=== PATIENT | male | born 1975 | race Caucasian/White ===

== ENCOUNTER 2023-02-16 21:00 | Emergency (ER) | payer BC, SELFPAY ==
[2023-02-16 21:01] VITALS: BP 167/90; PULSE 117; RESP 20; TEMP 36.2; O2SAT 100; BMI 19.9
--- NOTE | 2023-02-16 21:14 | EKG12_ITS ---
Test Reason : FALL Blood Pressure : / mmHG Vent. Rate : 116 BPM Atrial Rate : 000 BPM P-R Int : 000 ms QRS Dur : 078 ms QT Int : 294 ms P-R-T Axes : 000 066 068 degrees QTc Int : 408 ms Atrial fibrillation with rapid ventricular response Abnormal ECG Confirmed by BRUCE MORGAN, BILLIE ([id number]), image editor HERRERA ARENAS ([id number]) on 02/18/2023 8:58:10 AM Referred By: CARA Confirmed By:JAYLA BARRERA MD
[2023-02-16] MEDS: 0.9% Normal Saline 1,000 ML 999 ML IV (21:21)
[2023-02-16 21:26] LABS: Bacteria 0 SEEN /hpf (None Seen); Mucous, Urine 0 SEEN /hpf (<or=2+); Red Blood Cells-Urine 0 SEEN /hpf (0-5); Squamous Epithelial Cells - UA 0 SEEN /hpf (0-5); White Blood Cells 0 SEEN /hpf (0-5)
--- NOTE | 2023-02-16 21:30 | CT_ITS ---
EXAM: CT CERVICAL SPINE WITHOUT INTRAVENOUS CONTRAST CLINICAL INDICATION: Trauma TECHNIQUE: Helically acquired images were obtained of the cervical spine without intravenous contrast. 2D reformatted images were reviewed. This CT exam was performed using one or more of the following dose reduction techniques: automated exposure control, adjustment of the mA and/or kV according to patient size, and/or use of iterative reconstruction technique. COMPARISON: No relevant prior studies available. FINDINGS: VERTEBRAE: There is a fracture of the right mandibular condyle. No traumatic subluxation. No discrete lytic or blastic abnormality. Normal craniocervical junction and cervicothoracic junction. DISCS/SPINAL CANAL/NEURAL FORAMINA: Unremarkable. Disc heights are preserved. No critical stenosis. SOFT TISSUES: There is a fluid density mass in the subcutaneous tissues in the right upper back that measures 2.5 x 1.7 x 2.1 cm compatible with a sebaceous cyst. No prevertebral soft tissue swelling. LYMPH NODES: Unremarkable. No cervical adenopathy. LUNG APICES: Unremarkable as visualized. Clear. CT/Spine Cervical without Contras IMPRESSION: No acute findings in the cervical spine. There is a fracture of the right mandibular condyle. Electronically Signed: Laci Santana MD at 22:07 EDT ,
--- NOTE | 2023-02-16 21:30 | CT_ITS ---
EXAM: CT HEAD WITHOUT INTRAVENOUS CONTRAST CLINICAL INDICATION: Trauma TECHNIQUE: Multiple axial images were obtained of the head without intravenous contrast. This CT exam was performed using one or more of the following dose reduction techniques: automated exposure control, adjustment of the mA and/or kV according to patient size, and/or use of iterative reconstruction technique. COMPARISON: No relevant prior studies available. FINDINGS: BRAIN AND EXTRA-AXIAL SPACES: Unremarkable. No intra- or extra-axial hemorrhage. No evidence of acute infarct. No intracranial mass or mass effect. There is preservation of the lucero/white matter interface. Posterior fossa structures are unremarkable. Ventricles are appropriate for age. No hydrocephalus. Basal cisterns are patent. BONES/JOINTS: There is a fracture of the right mandibular condyle. No discrete lytic or blastic abnormalities. SOFT TISSUES: There is soft tissue swelling and hematoma overlying the left orbit. SINUSES: Unremarkable as visualized. Clear. MASTOID AIR CELLS: Unremarkable. Clear. ORBITS: Visualized globes, extraocular muscles, optic nerves and retrobulbar fat appear unremarkable. CT/Brain/Head without Contrast IMPRESSION: 1. No acute intracranial abnormality. 2. Fracture of the right mandibular condyle. Electronically Signed: Laci Santana MD at 21:50 EDT ,
--- NOTE | 2023-02-16 21:30 | CT_ITS ---
EXAM: CT MAXILLOFACIAL WITHOUT INTRAVENOUS CONTRAST CLINICAL INDICATION: facial trauma TECHNIQUE: Helically acquired images were obtained of the face without intravenous contrast. This CT exam was performed using one or more of the following dose reduction techniques: automated exposure control, adjustment of the mA and/or kV according to patient size, and/or use of iterative reconstruction technique. COMPARISON: No relevant prior studies available. FINDINGS: BONES/JOINTS: There is a fracture of the right mandibular condyle. No discrete lytic or blastic abnormalities. SOFT TISSUES: There is soft tissue swelling over the left orbit. No discrete fluid collections. ORBITS: Unremarkable. Both globes are unremarkable. Extraocular muscles are normal. Retrobulbar fat appears unremarkable. SINUSES: Unremarkable as visualized. Clear. MASTOID AIR CELLS: Unremarkable as visualized. Clear. DENTAL: No acute findings. No periodontal osseous erosion. CT/Sinus/Facial Bone IMPRESSION: Fracture of the right mandibular condyle. No other bony abnormalities are identified. Electronically Signed: Laci Santana MD at 21:52 EDT ,
--- NOTE | 2023-02-16 21:30 | CT_ITS ---
EXAM: CT CHEST, ABDOMEN AND PELVIS WITH INTRAVENOUS CONTRAST CLINICAL INDICATION: trauma -- TRAUMA ONLY: IV Contrast. Dont wait for creatinine TECHNIQUE: Helically acquired images were obtained of the chest, abdomen and pelvis with intravenous contrast. This CT exam was performed using one or more of the following dose reduction techniques: automated exposure control, adjustment of the mA and/or kV according to patient size, and/or use of iterative reconstruction technique. CONTRAST: 100ML OF ISOVUE 370 COMPARISON: No relevant prior studies available. FINDINGS: CHEST: LUNGS AND PLEURAL SPACES: Unremarkable. No mass. No consolidation or edema. No pleural effusion or thickening. No pneumothorax. HEART: Unremarkable. Heart size is normal. No pericardial effusion. MEDIASTINUM: Unremarkable. No mediastinal or hilar adenopathy. Esophagus is unremarkable. No hiatal hernia. THYROID: Unremarkable. No thyroid lesions. ABDOMEN: LIVER: Unremarkable. Homogeneous. No focal mass. GALLBLADDER AND BILE DUCTS: Unremarkable. No calcified gallstones. No gallbladder distention or wall edema. No intra- or extrahepatic biliary ductal dilation. PANCREAS: Unremarkable. No focal cystic or solid mass. SPLEEN: Unremarkable. Normal size without focal cystic or solid mass. ADRENALS: Unremarkable. No nodules. KIDNEYS AND URETERS: Unremarkable. Normal renal size and position. No hydronephrosis. STOMACH AND BOWEL: Unremarkable. No stomach or bowel distention. No focal inflammatory change. PELVIS: APPENDIX: No evidence of acute appendicitis. BLADDER: There is a Zaragoza catheter in the bladder. REPRODUCTIVE: Unremarkable as visualized. No mass. CHEST, ABDOMEN and PELVIS: INTRAPERITONEAL SPACE: Unremarkable. No ascites or other fluid collection. No free air. BONES/JOINTS: Unremarkable. No suspicious lytic or blastic abnormality. SOFT TISSUES: Unremarkable. No discrete abdominal or pelvic wall hernia. VASCULATURE: Unremarkable. Aorta is non-dilated. No aortic dissection. No obvious central pulmonary embolism although this study was not performed with the pulmonary embolism protocol. LYMPH NODES: Unremarkable. No enlarged lymph nodes. CT/CT Chest, Abd, Pel w/Contrast IMPRESSION: No acute findings in the chest, abdomen or pelvis. Electronically Signed: Laci Santana MD at 22:05 EDT ,
[2023-02-16 21:32] LABS: Absolute Lymphocyte Count 4.41 X10^3/uL (0.83-4.51); Absolute Neutrophil Count 4.4 X10^3/uL (2.0-7.7); Basophil# 0.11 X10^3/uL; Basophil% 1.1 % (0-1); Eosinophil# 0.13 X10^3/uL; Eosinophils% 1.3 % (0-5); Hematocrit 44.3 % (40-54); Hemoglobin 15.3 g/dL (13.0-16.5); Lymphocyte # 4.41 X10^3/ul (0.83-4.51); Lymphocyte % 43.5 % (19-41); Mean Corp Hgb Conc 34.5 g/dL (32-36); Mean Corpuscular Hgb 32.4 pg (27.0-32.0); Mean Corpuscular Volume 93.9 fL (80-94); Monocyte# 1.06 X10^3/uL; Monocyte% 10.5 % (0-10); NRBC Flagged by Analyzer 0 % (0-5); Neutrophil % 43.4 % (47-70); Platelet Count 282 K/mm3 (150-450); RBC Distribution Width CV 13.1 % (11.6-14.6); RBC Distribution Width SD 45.1 fl (35.1-43.9); Red Blood Count 4.72 M/mm3 (4.6-6.2); White Blood Count 10.1 K/mm3 (4.4-11.0)
[2023-02-16 21:36] LABS: Bedside Glucose 91 mg/dL (74-106)
[2023-02-16 21:40] LABS: Color, Urine Yellow (Yellow); Glucose, Dipstick Normal (Normal); Ketone-Dipstick Negative (Negative); Leukocyte Esterase-Dipstick Negative /ul (Negative); Nitrite-Dipstick Negative (Negative); Occult Blood-Urine Negative /ul (Negative); Protein-Dipstick 15 mg/dl (Negative); Urine Bilirubin Dipstick Negative (Negative); Urine Clarity Clear (Clear); Urine Urobilinogen Normal (Normal)
[2023-02-16 21:41] LABS: International Normalized Ratio 0.9; Prothrombin Time (Protime)PT. 12.5 SECONDS (11.7-14.9)
[2023-02-16 21:50] LABS: AST(SGOT) 15 U/L (15-37); Alanine Aminotransfer ALT/SGPT 19 U/L (16-61); Alkaline Phosphatase 76 U/L (45-117); Anion Gap 9 (5-15); BUN 6 mg/dL (7-18); BUN/Creat Ratio 8.8 RATIO (10-20); Bilirubin, Direct 0.12 mg/dL (0.00-0.30); Calcium,Total 8.9 mg/dL (8.5-10.1); Chloride 98 mmol/L (98-107); Creatinine, Serum 0.68 mg/dL (0.70-1.30); EST Glomerular Filtration Rate 131 mL/min (>60); Est Glom Filt Rate - Afr Amer 158 mL/min (>60); Estimated Creatinine Clearance 125.38 ml/min; Globulin 3.8 g/dL (2.2-4.2); Glucose 90 mg/dL (74-106); Potassium 3.2 mmol/L (3.5-5.1); Protein, Total 7.8 g/dL (6.4-8.2); Sodium Level 131 mmol/L (136-145)
[2023-02-16 22:09] LABS: Lipase 30 U/L (13-75)
[2023-02-16 22:20] LABS: Amphetamine Urine VISTA NEGATIVE (<1000 ng/mL); Barbiturate Urine VISTA NEGATIVE (< 200 ng/mL); Benzodiazepine Urine VISTA NEGATIVE (< 200 ng/mL); Cocaine Urine VISTA NEGATIVE (< 300 ng/mL); Ecstacy Urine VISTA NEGATIVE (< 500 ng/mL); Methadone Urine VISTA NEGATIVE (< 300 ng/mL); PCP Urine VISTA NEGATIVE (< 25 ng/mL); THC Urine VISTA POSITIVE (< 50 ng/mL); Vista UDS pH Range 6
[2023-02-16 22:57] VITALS: BP 113/95; PULSE 99; RESP 16; O2SAT 99
[2023-02-16 23:01] VITALS: BP 142/91; PULSE 99; RESP 16; TEMP 36.7; O2SAT 99
[2023-02-16 23:02] VITALS: RESP 16
--- NOTE | 2023-02-16 23:24 | EDS_ITS ---
HPI History of Present Illness Chief Complaint: Head Injury Narrative Narrative: 47-year-old male presenting with altered mental status. On arrival he has blood around his nares and in his mustache. He is got a little bit of blood coming from his mouth. He seems altered and is reported by EMS that he had been drinking tonight. It is unclear how he actually fell but apparently he was fell from standing height and hit his face on the ground and lost consciousness. He had some bleeding since then. PFSH PFSH Medical History unable to obtain Home Medications Unobtainable 02/16/23 [History Last Taken Unknown] Allergy/AdvReac Type Severity Reaction Status Date / Time Unable to Assess Allergy Verified 02/16/23 21:05 Family History unable to obtain Surgical History unable to obtain Social History Smoking Status: Unknown if ever smoked ROS ROS ED Review of Systems ROS Unobtainable: due to mental condition and due to mental status EXAM Physical Exam Const Vital Signs: 02/16/23 21:01 02/16/23 21:01 02/16/23 22:57 Temperature 97.1 F L Temperature Source Temporal Pulse Rate 117 H 99 Respiratory Rate 20 H 16 Blood Pressure 167/90 H 113/95 H Blood Pressure Mean 115 101 Pulse Ox 100 99 02/16/23 23:01 02/16/23 23:02 Temperature 98.1 F Temperature Source Pulse Rate 99 Respiratory Rate 16 16 Blood Pressure 142/91 H Blood Pressure Mean 108 Pulse Ox 99 Positive well nourished General Appearance ED: NAD HEENT Reports TM's clear HEENT Narrative: Blood around mouth and mustache. There is blood that is pulled from the mouth into the ears. No hemotympanum. No nasal septal hematoma. I am unable to vi sualize the inside of the mouth clearly because of the patient's pain in his mouth. Is also limited by patient compliance. Nose: Negative for septum abnormal Tympanic Membrane ED: Yes TM's clear Eyes PERRL and EOMs intact bilaterally General Eye ED: Yes other Other Details: Patient able to count fingers bilaterally. Neck Neck Narrative: Deformity or step-off. Chest Wall inspection of chest normal and palpation of chest normal Resp normal respiratory effort and clear to auscultation bilaterally Auscultation: Negative for rales, rhonchi or wheezes Cardio regular rhythm Rate: tachycardic GI Inspection: Negative for abdominal distention Palpation: tender epigastric Back/Spine normal to inspection Lumbar Spine / Lower Back: straight leg raise negative bilaterally Extremity normal to inspection General Extremety ED: Negative for deformity General Extremity: Negative for deformity Neuro CN's II-XII intact bilaterally and moves all extremities Laz Coma Scale: document GCS findings To Voice Obeys Commands Confused 13 Sensorium / Orientation: alert Psych Psych Narrative: Confused/intoxicated MDM MDM MDM Narrative Medical decision making narrative: 47-year-old male with trauma to the face. He is unable to give any history. He does have some blood around his mouth. No hemotympanum. No nasal septal hematoma. He has swelling on the right side of his mandible. He is apparently intoxicated and a little bit confused but is able to follow commands. He does tell me that his abdomen hurts from falling in his right jaw but otherwise keeps falling asleep. We will obtain a CT brain, facial bones, cervical spine, chest abdomen pelvis due to the diffuse pain that is having. CBC obtained to assess white blood cell count, hemoglobin, platelets. CMP to assess for liver function, renal function, electrolytes, glucose. Lipase to assess for pancreatitis. Urinalysis for UTI. Urine drug screen test for drug abuse. EtOH to assess for alcohol level. EKG to assess for arrhythmia. CBC shows normal white blood cell count 10.1. Hemoglobin hematocrit are stable. Platelets are normal. PT/INR normal. LFTs within normal limits. Renal function normal. Electrolytes slightly abnormal with potassium 3.2 and sodium 131. EtOH 188. Urine drug screen positive for cannabinoids. CT brain, facial bones, cervical spine, CT abdomen pelvis with IV contrast obtained and only positive for cannabinoids. Patient is telling me that he has blood going down his throat although I cannot get a good examination because he cannot open his mouth more than about an inch. I did try suctioning and did not see a lot of blood. Given that the patient is still pretty confused and intoxicated with a broken jaw and possibly bleeding I did talk to the trauma center in [facility]. I spoke with Dr. Paz who was amenable to transfer. EKG was obtained just prior to transfer to [facility] and this does appear to be atrial fibrillation with a rate of 116 bpm and therefore rapid ventricular response. Patient was already dispositioned before I interpreted this EKG although his last heart rate before he left was 99. This may explained why he fell. Possibly had a faster heart rate at that time. Patient has not been seen for any kind of treatment in multiple years so is unclear if this is even new. Impression: 1. EtOH intoxication 2. Right mandibular fracture 3. Encephalopathy 4. Hypokalemia 5. Hyponatremia 6. New onset A-fib with RVR Lab Data Attestation: I reviewed the patient's lab results. Labs: Laboratory Results - last 24 hr 02/16/23 02/16/23 02/16/23 21:17 21:19 21:22 WBC 10.1 RBC 4.72 Hgb 15.3 Hct 44.3 MCV 93.9 MCH 32.4 H MCHC 34.5 RDW Std Deviation 45.1 H RDW Coeff of Rosina 13.1 Plt Count 282 MPV 9.0 Immature Gran % (Auto) 0.200 Neut % (Auto) 43.4 L Lymph % (Auto) 43.5 H [place] % (Auto) 10.5 H Eos % (Auto) 1.3 Baso % (Auto) 1.1 H Absolute Neuts (auto) 4.4 Absolute Lymphs (auto) 4.41 Nucleated RBC % 0 PT 12.5 INR 0.9 Sodium 131 L Potassium 3.2 L Chloride 98 Carbon Dioxide 24.0 Anion Gap 9 BUN 6 L Creatinine 0.68 L Estim Creat Clear Calc 125.38 Est GFR (MDRD) Af Amer 158 Est GFR (MDRD) Non-Af 131 BUN/Creatinine Ratio 8.8 L Glucose 90 Calcium 8.9 Total Bilirubin 0.30 Direct Bilirubin 0.12 AST 15 ALT 19 Alkaline Phosphatase 76 Total Protein 7.8 Albumin 4.0 Globulin 3.8 Lipase 30 Urine Color Yellow Urine Clarity Clear Urine pH 7.0 Ur Specific [place] 1.010 Urine Protein 15 H Urine Glucose (UA) Normal Urine Ketones Negative Urine Occult Blood Negative Urine Nitrite Negative Urine Bilirubin Negative Urine Urobilinogen Normal Ur Leukocyte Esterase Negative Urine RBC 0 SEEN Urine WBC 0 SEEN Ur Squamous Epith Cells 0 SEEN Urine Bacteria 0 SEEN Urine Mucus 0 SEEN Urine Opiates Screen NEGATIVE Urine Methadone Screen NEGATIVE Ur Barbiturates Screen NEGATIVE Ur Phencyclidine Scrn NEGATIVE Ur Amphetamines Screen NEGATIVE MDMA (Ecstasy) Screen NEGATIVE U Benzodiazepines Scrn NEGATIVE Urine Cocaine Screen NEGATIVE U Cannabinoids Screen POSITIVE H Ur Drug Screen Comment Ethyl Alcohol POC Glucose 91 02/16/23 21:40 WBC RBC Hgb Hct MCV MCH MCHC RDW Std Deviation RDW Coeff of Rosina Plt Count MPV Immature Gran % (Auto) Neut % (Auto) Lymph % (Auto) [place] % (Auto) Eos % (Auto) Baso % (Auto) Absolute Neuts (auto) Absolute Lymphs (auto) Nucleated RBC % PT INR Sodium Potassium Chloride Carbon Dioxide Anion Gap BUN Creatinine Estim Creat Clear Calc Est GFR (MDRD) Af Amer Est GFR (MDRD) Non-Af BUN/Creatinine Ratio Glucose Calcium Total Bilirubin Direct Bilirubin AST ALT Alkaline Phosphatase Total Protein Albumin Globulin Lipase Urine Color Urine Clarity Urine pH Ur Specific [place] Urine Protein Urine Glucose (UA) Urine Ketones Urine Occult Blood Urine Nitrite Urine Bilirubin Urine Urobilinogen Ur Leukocyte Esterase Urine RBC Urine WBC Ur Squamous Epith Cells Urine Bacteria Urine Mucus Urine Opiates Screen Urine Methadone Screen Ur Barbiturates Screen Ur Phencyclidine Scrn Ur Amphetamines Screen MDMA (Ecstasy) Screen U Benzodiazepines Scrn Urine Cocaine Screen U Cannabinoids Screen Ur Drug Screen Comment Ethyl Alcohol 188.0 POC Glucose Radiography Diagnostic Testing: Clinical Impression(s) from Imaging Studies Brain CT 02/16/23 21:30 IMPRESSION: 1. No acute intracranial abnormality. 2. Fracture of the right mandibular condyle. Electronically Signed: Laci Santana MD at 21:50 EDT , Cervical Spine CT 02/16/23 21:30 IMPRESSION: No acute findings in the cervical spine. There is a fracture of the right mandibular condyle. Electronically Signed: Laci Santana MD at 22:07 EDT , Chest/Abdomen/Pelvis CT 02/16/23 21:30 IMPRESSION: No acute findings in the chest, abdomen or pelvis. Electronically Signed: Laci Santana MD at 22:05 EDT , Facial/Sinus 02/16/23 21:30 IMPRESSION: Fracture of the right mandibular condyle. No other bony abnormalities are identified. Electronically Signed: Laci Santana MD at 21:52 EDT , Discharge Plan Triage Chief Complaint: Head Injury ED Provider: Chris Mays Dx/Rx/DC Orders Prescriptions: No Action Unobtainable Primary Care Provider: Care Physician,No Primary Referrals: Care Physician,No Primary [Primary Care Provider] - Disposition Disposition: Acute Care Hospital Discharge Location: [facility] Discharge Date/Time: 02/16/23 23:19
== END 2023-02-16 23:19 | disposition short-term general hospital (02) ==
PROVIDERS: Emergency Provider Student in an Organized Health Care Education/Training Program; Visit Provider Student in an Organized Health Care Education/Training Program
DX: F10.129 Alcohol abuse with intoxication, unspecified (principal); I48.91 Unspecified atrial fibrillation; S02.611A Fracture of condylar process of right mandible, initial encounter for closed fracture; Y90.6 Blood alcohol level of 120-199 mg/100 ml; W18.30XA Fall on same level, unspecified, initial encounter; G93.40 Encephalopathy, unspecified; E87.6 Hypokalemia; E87.1 Hypo-osmolality and hyponatremia
CPT/HCPCS: 70450; 70486; 71260; 72125; 74177; 80048; 80076; 80307; 81001; 82077; 82962; 83690; 85025; 85610; 93005; 99285; J7030; Q9967; A4216